=== PATIENT | male | born 1995 | race Asian ===

== ENCOUNTER → 2022-06-25 07:00 | Outpatient (CLI) | payer OTHER, SELFPAY ==
--- NOTE | 2022-06-25 | DI.MRI.S_ITS ---
PROCEDURE: MR ANKLE LT WO CON INDICATIONS: Pain in left foot TECHNIQUE: Noncontrast sagittal T1 spin echo and T2 fast spin echo with fat saturation, axial proton density fast spin echo and T2 fast spin echo with fat saturation, coronal T1 spin echo and T2 fast spin echo with fat saturation through the ankle/hindfoot. COMPARISON: None. FINDINGS: Image quality: Excellent. Bones and joints: No bone marrow contusions or fractures. No hindfoot coalitions. No osteochondral injuries of the talar dome. Possible tiny osteochondral injury involving posterior and lateral aspect of distal tibial plafond and measures 3 mm in size is seen. No pathologic joint effusions. Medial structures: The posterior tibialis is mildly thickened with fluid distending tendon sheath at the level of mid to distal talus and talonavicular joint. Low-grade intrasubstance T2 hyperintense signal is also seen. The flexor digitorum longus, and flexor hallucis longus tendons are intact. The posterior tibial neurovascular bundle appears normal within the tarsal tunnel, without extrinsic mass effect. The deep layer (anterior and posterior tibiotalar ligaments) and superficial layer (tibionavicular, tibiospring, and tibiocalcaneal ligaments) of the deltoid ligament appear normal. The spring ligament components (superomedial calcaneonavicular, medioplantar oblique calcaneonavicular, and inferoplantar longitudinal ligaments) are intact. Lateral structures: The anterior talofibular, calcaneofibular, and posterior talofibular ligaments appear intact. More superiorly, the anterior and posterior tibiofibular ligaments appear intact, as is the intermalleolar ligament. The tibiofibular syndesmosis is normal in width at 2 mm or less. The peroneus longus and brevis tendons demonstrate normal location and morphology. Adjacent bony peroneal tubercle and retrotrochlear prominence are normal in size. The sinus tarsi demonstrates normal fatty signal, without edema, fibrosis, or cyst formation. Visualized sinus tarsi components (cervical ligament, interosseous talocalcaneal ligament, roots of the inferior extensor retinaculum) appear normal. The calcaneonavicular and calcaneocuboid components of the bifurcate ligament appear intact. The dorsal calcaneocuboid ligament appears intact. Anterior structures: The tibialis anterior, extensor hallucis longus, and extensor digitorum longus tendons appear intact. The dorsal talonavicular ligament appears intact. Posterior and plantar structures: Achilles tendon is intact. Medial and lateral bands of the plantar fascia are of normal thickness. No abductor digiti quinti muscle atrophy to suggest Leon neuropathy. IMPRESSION: 1. No marrow edema. No fracture or dislocation. No osteochondral injuries of talar dome. Possible tiny 3 mm osteochondral injury involving posterior lateral weight-bearing portion of distal tibial plafond. No significant joint effusion. 2. Low-grade tenosynovitis and intrasubstance partial-thickness tear involving posterior tibialis tendon at the level of mid to distal talus/talonavicular joint. Rest of the ankle tendons are intact. 3. Medial and lateral ankle ligaments are grossly intact. Dictated by: Manjinder Landa M.D. on 06/25/2022 at 9:45 Approved by: Manjinder Landa M.D. on 06/25/2022 at 10:30
--- NOTE | 2022-06-25 | DI.MRI.S_ITS ---
PROCEDURE: MRFOOT LT WO CON INDICATIONS: Pain in left foot TECHNIQUE: Noncontrast sagittal T1 spin echo and T2 fast spin echo with fat saturation, long-axis T1 spin echo and T2 fast spin echo with fat saturation, short-axis T1 spin echo and T2 fast spin echo with fat saturation through the forefoot. COMPARISON: None. FINDINGS: Image quality: Excellent. Bones and joints: Osteoarthritic changes are noted involving 1st TMT joint with joint space narrowing, subchondral sclerosis and cyst formation, mild subcortical edema and marginal osteophyte formation. Mild edema is also noted involving proximal shaft of 2nd metatarsal bone without discrete fracture line and may represent stress related changes. No other area of abnormal marrow signal. No suspicious bony lesions. Soft tissues: The visualized plantar foot muscles demonstrate normal signal and bulk. Visualized flexor and extensor tendons appear intact, without tenosynovitis. The distal insertions of the peroneus brevis and longus tendons appear intact. The principal Lisfranc ligament appears thickened. No soft tissue ganglion cysts or bursal fluid collections. Sagittal images demonstrate no evidence for plantar plate tears. IMPRESSION: 1. Thickened principal Lisfranc ligament suggestive of ligament sprain. No full-thickness ligament rupture. 2. Osteoarthritic changes at 1st TMT joint as described above. Mild stress related changes involving proximal shaft of 2nd metatarsal bone. No fracture or dislocation. 3. Extensor and flexor tendons are grossly intact. No plantar foot muscle signal abnormalities. Dictated by: Manjinder Landa M.D. on 06/25/2022 at 10:30 Approved by: Manjinder Landa M.D. on 06/25/2022 at 10:50
== END ==
PROVIDERS: PCP Student in an Organized Health Care Education/Training Program; Referring Provider Podiatrist; Visit Provider Podiatrist
DX: S96.812A Strain of other specified muscles and tendons at ankle and foot level, left foot, initial encounter; S99.922A Unspecified injury of left foot, initial encounter; M65.872 Other synovitis and tenosynovitis, left ankle and foot; M79.672 Pain in left foot; X58.XXXA Exposure to other specified factors, initial encounter
CPT/HCPCS: 73718; 73721